=== PATIENT | female | born 1950 | race Caucasian/White ===

== ENCOUNTER 2018-11-25 16:51 | Inpatient (IN) | payer OTHER ==
--- NOTE | 2018-11-25 17:04 | EDPHY ---
H & P Time Seen by Provider: 11/25/18 16:57 Constitutional: Initial Vital Signs Temperature (C) 36.8 C 11/25/18 16:59 Heart Rate 72 11/25/18 16:59 Respiratory Rate 16 11/25/18 16:59 Blood Pressure 174/109 H 11/25/18 16:59 O2 Sat (%) 94 11/25/18 16:59 O2 Delivery Mode Room Air Allergies/Adverse Reactions: bacitracin [From Neosporin ([id number])] Allergy (Verified 11/25/18 17:04) neomycin [From Neosporin ([id number])] Allergy (Verified 11/25/18 17:04) polymyxin B [From Neosporin ([id number])] Allergy (Verified 11/25/18 17:04) Home Medications: Medication Instructions Recorded ACETAMINOPHEN 11/25/18 Amlodipine Besylate 2.5 mg 11/25/18 Biotin 1,000 mg 11/25/18 Effexor Xr 150 mg 11/25/18 Folic Acid 11/25/18 Krill Oil 11/25/18 Lamictal 250 mg 11/25/18 [place] Carbonate 300 mg 11/25/18 Lorazepam 1 mg 11/25/18 Losartan Potassium 100 mg 11/25/18 Multivitamin 11/25/18 Nac 1,000 mg 11/25/18 Synthroid 150 mcg (*) 11/25/18 Zyprexa 10 mg 11/25/18 Medical Decision Making ED Course/Re-evaluation: CHIEF COMPLAINT: Psychiatric evaluation HISTORY OF PRESENT ILLNESS: The patient is a 68 y/o female with a history of depression arriving via independent vehicle complaining of suicidal ideations. The patient sees a psychiatrist who has tried numerous medications. However, these medications are not helping so her psychiatrist would like the patient to receive ECT. The patient states that the is "at end of [her] rope". She does not have any plan for the suicide. No fever, headache, body aches, lightheadedness, chest pain, heart palpitations, shortness of breath, cough, abdominal pain, urinary or bowel complaints, numbness, paresthesias. REVIEW OF SYSTEMS: A comprehensive 10 system review of systems is otherwise negative aside from elements mentioned in the history of present illness and medical decision making. PHYSICAL EXAM: General Appearance: Tearful, alert, well hydrated, appropriate, and non-toxic appearing. Head: Atraumatic without scalp tenderness or obvious injury Eyes: Pupils equal, round, reactive to light and accommodation, EOMI, no trauma , no injection. Ears: Clear bilaterally, no perforation, normal landmarks Nose: Atraumatic, no rhinorrhea, clear. Throat: There is no erythema or exudates, no lesions, normal tonsils, mucus membranes moist. Neck: Supple, 2+ carotid upstroke, nontender, no lymphadenopathy. Respiratory: No retractions, no distress, no wheezes, and no accessory muscle use. Lungs are clear to auscultation bilaterally. Cardiovascular: Regular rate and rhythm, no murmurs, rubs, or gallops. Bilateral carotid, radial, dorsalis pedis, and posterior tibial pulses intact. Good capillary refill all extremities. Gastrointestinal: Abdomen is soft, nontender, non-distended, no masses, no rebound, no guarding, no peritoneal signs. Musculoskeletal: Normal active ROM of all extremities, atraumatic. Neurological: Alert, appropriate, and interactive. The patient has normal DTRs and non-focal cranial nerves, motor, sensory, and cerebellar exam. Skin: No rashes, good turgor, no nodules on palpation. Psych: Expresses suicidal ideations. No homicidal ideations. Past medical history: Depression Past surgical history: Denies Family history: Denies Social history: at bedside, lives in [place], retired DIFFERENTIAL DIAGNOSIS: The differential diagnosis for the patient's depression included but was not limited to functional and major depression, situational depression, medication side effect, drugs, and alcohol abuse. MEDICAL DECISION MAKING: The patient is a 68 y/o female with a history of depression arriving via independent vehicle presenting with suicidal ideations. The patient's psychiatrist sent the patient to the emergency department so she can be admitted for an ECT. Patient is in no acute distress and is hemodynamically stable. Patient has known history of psychiatric disorders and is here for an ECT. 1751: Dr. Kramer, the precision farming specialist psychiatrist, has not seen this patient. The patient will need a psych eval prior to be admitted for an ECT. 1923: Patient has been accepted to [facility] by Dr. Kramer, psychiatrist; EMTALA signed. 1926: The 12 lead EKG was interpreted by myself as sinus rhythm with a rate of 70. See hard copy and/or "tracemaster" electronic copy for interpretation. - Data Points Laboratory Results: Laboratory Results 11/25/18 17:16 11/25/18 17:16 11/25/18 11/25/18 11/25/18 17:16 17:16 17:10 WBC 6.93 10^3/uL 10^3/uL (3.80-9.50) RBC 4.70 10^6/uL 10^6/uL (4.18-5.33) Hgb 14.9 g/dL g/dL (12.6-16.3) Hct 44.3 % % (38.0-47.0) MCV 94.3 fL fL (81.5-99.8) MCH 31.7 pg pg (27.9-34.1) MCHC 33.6 g/dL g/dL (32.4-36.7) RDW 12.1 % % (11.5-15.2) Plt Count 272 10^3/uL 10^3/uL (150-400) MPV 9.6 fL fL (8.7-11.7) Neut % (Auto) 61.3 % % (39.3-74.2) Lymph % (Auto) 29.1 % % (15.0-45.0) [place] % (Auto) 7.8 % % (4.5-13.0) Eos % (Auto) 1.3 % % (0.6-7.6) Baso % (Auto) 0.1 % L % (0.3-1.7) Nucleat RBC Rel Count 0.0 % % (0.0-0.2) Absolute Neuts (auto) 4.24 10^3/uL 10^3/uL (1.70-6.50) Absolute Lymphs (auto) 2.02 10^3/uL 10^3/uL (1.00-3.00) Absolute Monos (auto) 0.54 10^3/uL 10^3/uL (0.30-0.80) Absolute Eos (auto) 0.09 10^3/uL 10^3/uL (0.03-0.40) Absolute Basos (auto) 0.01 10^3/uL L 10^3/uL (0.02-0.10) Absolute Nucleated RBC 0.00 10^3/uL 10^3/uL (0-0.01) Immature Gran % 0.4 % % (0.0-1.1) Immature Gran # 0.03 10^3/uL 10^3/uL (0.00-0.10) Sodium 142 mEq/L mEq/L (135-145) Potassium 4.1 mEq/L mEq/L (3.5-5.2) Chloride 109 mEq/L mEq/L (97-110) Carbon Dioxide 22 mEq/l mEq/l (22-31) Anion Gap 11 mEq/L mEq/L (6-14) BUN 15 mg/dL mg/dL (7-23) Creatinine 0.7 mg/dL mg/dL (0.6-1.0) Estimated GFR > 60 Glucose 104 mg/dL H mg/dL (70-100) Calcium 10.5 mg/dL H mg/dL (8.5-10.4) Salicylates < 1.0 mg/dL L mg/dL (2.0-20.0) Urine Opiates Screen NEGATIVE (NEGATIVE) Acetaminophen < 10 mcg/mL L mcg/mL (10-30) Urine Barbiturates NEGATIVE (NEGATIVE) Ur Phencyclidine Scrn NEGATIVE (NEGATIVE) Ur Amphetamine Screen NEGATIVE (NEGATIVE) U Benzodiazepines Scrn NON-NEGATIVE H (NEGATIVE) Urine Cocaine Screen NEGATIVE (NEGATIVE) U Marijuana (THC) Screen NEGATIVE (NEGATIVE) Ethyl Alcohol < 10 mg/dL mg/dL (0-10) Departure - Departure Disposition: [facility] IP Clinical Impression: Severe major depression Condition: Fair Referrals: NONE *PRIMARY CARE P,. [Primary Care Provider] - As per Instructions Report Scribed for: Bradley Roman Report Scribed by: Mikaela Barrera Date of Report: 11/25/18 Time of Report: 17:05
[2018-11-25 17:31] LABS: PLATELET COUNT 272 10^3/uL (150-400)
--- NOTE | 2018-11-25 19:54 | CPEKG ---
Test Reason : OPEN Blood Pressure : / mmHG Vent. Rate : 070 BPM Atrial Rate : 070 BPM P-R Int : 170 ms QRS Dur : 083 ms QT Int : 437 ms P-R-T Axes : 041 -27 039 degrees QTc Int : 472 ms Sinus rhythm Borderline left axis deviation Anteroseptal infarct, age indeterminate Confirmed by Bradley Romna ([id number]) on 11/25/2018 7:54:18 PM Referred By: Bradley Roman Confirmed By:Bradley Roman
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
--- NOTE | 2018-11-25 20:19 | ASMTTCLDSP ---
TLC Discharge Disposition Disposition: Answers: Admit Discharge Concerns/Recommendations: Notes: Per directive and order from [facility] on-call psychiatrist, Joe Kramer MD, Dr. Kramer agreed to accept pt for voluntary admission to . Was patient given the Answers: Yes Inpatient [facility] Prohibited Belongings List while in the ED? For inpatient Joe Kramer MD admission, the following psychiatrist agreed to accept patient for admission to [facility] ([facility]): Date Signed: 11/25/2018 08:19 PM Electronically Signed By:Candy Alvarado
[2018-11-25] MEDS ORDERED: MAGNESIUM HYDROXIDE 30 ML UDCUP PO PRN (21:40)
[2018-11-25] MEDS ORDERED: MAG HYDROX/AL HYDROX/SIMETH 30 ML UDCUP PO PRN (21:40)
[2018-11-25] MEDS: LORazepam 0.5 MG TAB PO PRN (21:59)
[2018-11-26] MEDS: ACETAMINOPHEN 325 MG TAB PO PRN ×2 (07:02→20:31)
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
[2018-11-26] MEDS: LORazepam 0.5 MG TAB PO PRN (07:25)
[2018-11-26] MEDS: LEVOTHYROXINE 150 MCG TAB PO SCH (08:05)
[2018-11-26] MEDS: amLODIPine BESYLATE 5 MG TAB PO SCH (08:12)
[2018-11-26] MEDS: VENLAFAXINE XR 150 MG CAP PO SCH (08:12)
[2018-11-26] MEDS: MULTIVITAMINS 1 EACH TAB PO SCH (08:12)
[2018-11-26] MEDS: LOSARTAN POTASSIUM 50 MG TAB PO SCH (08:12)
[2018-11-26] MEDS ORDERED: ONDANSETRON DISINTEGRATING 4 MG TAB PO PRN (13:56)
[2018-11-26] MEDS ORDERED: CITRIC ACID/SODIUM CITRATE 30 ML UDCUP PO PRN (13:56)
[2018-11-26] MEDS ORDERED: NS 1,000 ML IV PRN (13:56)
[2018-11-26] MEDS: QUEtiapine FUMARATE 25 MG TAB PO PRN ×2 (14:33→20:33)
--- NOTE | 2018-11-26 14:40 | SOAPPROG ---
SOAP Progress Note Assessment/Plan: Assessment: Q-waves in V1 and V2: * May be artifact of lead placement. Ordered repeat EKG. * She has no other signs or symptoms of coronary artery disease,, and no signs or symptoms of unstable coronary artery disease, and has sufficient cardiac reserve for the relatively low risk ECT procedure. * Dr. Anna advised against echocardiogram prior to the procedure, though if the repeat EKG continues to show Q-waves, a non urgent echocardiogram would be indicated in the future. * There is no indication for lm procedural beta rd. 11/26/18 14:37 Subjective: EKG abnormalities and cardiac risk with ECT discussed with senior quality assurance specialist Dr. Anna. Objective: Vital Signs Temp Pulse Resp BP Pulse Ox 36.7 C 69 14 118/58 L 98 11/26/18 06:00 11/26/18 06:00 11/26/18 06:00 11/26/18 06:00 11/26/18 06:00 ICD10 Worksheet Patient Problems: Problems Problem Status Onset Severe major depression Acute
--- NOTE | 2018-11-26 14:40 | PDMN ---
Medical Necessity Medical necessity: Pt meets inpt criteria per MD order and [facility] [id number], Major Depressive Disorder, Adult: Inpatient Care, 3 days. 68 y/o who reports having suicidal thoughts recently and w/hx of depression admitted w/major depressive disorder, recurrent, w/psychotic features.
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
[2018-11-26] MEDS: OLANZapine 10 MG TAB PO SCH (18:01)
[2018-11-26] MEDS: lamoTRIgine 25 MG TAB PO SCH (18:12)
[2018-11-26] MEDS ORDERED: lamoTRIgine 100 MG TAB PO SCH (21:00)
[2018-11-27] MEDS: QUEtiapine FUMARATE 25 MG TAB PO PRN ×2 (04:59→20:39)
[2018-11-27] MEDS: ACETAMINOPHEN 325 MG TAB PO PRN ×2 (07:13→13:32)
[2018-11-27] MEDS ORDERED: CITRIC ACID/SODIUM CITRATE 30 ML UDCUP ONE (11:22)
[2018-11-27] MEDS ORDERED: ONDANSETRON DISINTEGRATING 4 MG TAB ONE (11:22)
[2018-11-27] MEDS: amLODIPine BESYLATE 5 MG TAB PO SCH (11:23)
[2018-11-27] MEDS: LEVOTHYROXINE 150 MCG TAB PO SCH (11:23)
[2018-11-27] MEDS: LOSARTAN POTASSIUM 50 MG TAB PO SCH (11:23)
[2018-11-27] MEDS ORDERED: METHOHEXITAL SODIUM 100 MG/10 ML SYR IVP ONE (12:01)
[2018-11-27] MEDS ORDERED: ONDANSETRON 4 MG/2 ML VIAL ONE (12:02)
[2018-11-27] MEDS ORDERED: fentaNYL 100 MCG/2 ML INJ ONE (12:02)
[2018-11-27] MEDS ORDERED: LORazepam 2 MG/ML INJ ONE (12:16)
[2018-11-27] MEDS ORDERED: IBUPROFEN 600 MG TAB PO PRN (12:20)
[2018-11-27] MEDS ORDERED: ACETAMINOPHEN 500 MG TAB PO PRN (12:20)
[2018-11-27] MEDS ORDERED: NALOXONE HCL 0.4 MG/ML INJ IVP PRN (12:20)
[2018-11-27] MEDS ORDERED: PROMETHAZINE HCL 25 MG TAB PO PRN (12:20)
[2018-11-27] MEDS ORDERED: HYDROCODONE/APAP 5/325 TAB PO PRN (12:20)
--- NOTE | 2018-11-27 12:20 | PDECTPN ---
ECT Progress Note Patient Problems: Problems Problem Status Onset Code Severe major depression Acute F32.2 Date: 11/27/18 Treatment#: 1 ECT provider: Uri Mahoney Anesthesia: Esther Pineda Stimulus dose (%): 40 Pulse width: 0.5 ECT EMG (sec): 35 ECT EEG (sec): 90 ECT treatment type: bilateral QIDS-SR Total Score: 24 QIDS-SR Question #12 Score: 1 MMSE Total Score (Max = 21): 21 Next ECT date: 11/29/18 Next ECT time: 08:30 O/P psychiatrist follow up with : [place] O/P psychiatrist follow up: phone, voice message Home medications: Medication Instructions Recorded Acetaminophen [Tylenol ES 500 mg 1,000 mg PO BID 11/25/18 (*)] Herbals/Supplements -Info Only 1 ea PO DAILY 11/25/18 LORazepam [Ativan (*)] 1 mg PO BID 11/25/18 Levothyroxine [Synthroid 150 mcg 150 mcg PO DAILY06 11/25/18 (*)] [place] Carbonate [[place] 300 mg PO HS 11/25/18 Carbonate Cap 300 mg (*)] Losartan Potassium 100 mg PO DAILY 11/25/18 Multivitamins [Multivitamin (*)] 1 each PO DAILY 11/25/18 OLANZapine [Zyprexa] 10 mg PO DAILY@18 11/25/18 Venlafaxine HCl [Venlafaxine HCl 150 mg PO DAILY 11/25/18 ER] amLODIPine BESYLATE [Norvasc 2.5 2.5 mg PO DAILY 11/25/18 mg (*)] lamoTRIgine [Lamictal] 300 mg PO HS 11/25/18 Current treatment plan: acute phase Treatment plan frequency: 3 times per week ECT narrative: 11/27/18 Reviewed again the R/B/A's in terms of the Bilateral vs RUL ECT and pt emphatically wishes to start with Bilateral. She even virutally pleaded to get ketamine with this first tx. I demurred on that request given the rationale discussed yesterday (likelihood of "false positive" in terms of results too quickly, but in non-sustained manner with ketamine PLus ECT. Pt describes modest benefit from Seroquel prns. New EKG does not show Qs reflecting improper lead placement with first.
--- NOTE | 2018-11-27 12:26 | PDANEPAE ---
ECT Pre Anesthetic Evaluation Allergies/Adverse Reactions: bacitracin [From Neosporin ([id number])] Allergy (Verified 11/25/18 17:04) neomycin [From Neosporin ([id number])] Allergy (Verified 11/25/18 17:04) polymyxin B [From Neosporin ([id number])] Allergy (Verified 11/25/18 17:04) Patient ID confirmed: Yes H&P reviewed: Yes Pre-anesthetic history reviewed: Yes Heart: regular rate and rhythym, no murmur, rub, or gallop Lungs: no respiratory distress, no rales or rhonchi, clear to auscultation Mallampati Score: Class 3 ASA Status: III Home Medications: Medication Instructions Recorded Acetaminophen [Tylenol ES 500 mg 1,000 mg PO BID 11/25/18 (*)] Herbals/Supplements -Info Only 1 ea PO DAILY 11/25/18 LORazepam [Ativan (*)] 1 mg PO BID 11/25/18 Levothyroxine [Synthroid 150 mcg 150 mcg PO DAILY06 11/25/18 (*)] Dortches Carbonate [Dortches 300 mg PO HS 11/25/18 Carbonate Cap 300 mg (*)] Losartan Potassium 100 mg PO DAILY 11/25/18 Multivitamins [Multivitamin (*)] 1 each PO DAILY 11/25/18 OLANZapine [Zyprexa] 10 mg PO DAILY@18 11/25/18 Venlafaxine HCl [Venlafaxine HCl 150 mg PO DAILY 11/25/18 ER] amLODIPine BESYLATE [Norvasc 2.5 2.5 mg PO DAILY 11/25/18 mg (*)] lamoTRIgine [Lamictal] 300 mg PO HS 11/25/18 Medication review: completed Patient interviewed: Yes Patient examined: Yes Anesthetic plan discussed with patient: Yes Anesthetic risks discussed with patient: Yes ECT Pre-Anesthetic History - Height & Weight Height: 165.1 cm Weight: 74.843 kg BMI: 27.46 - Medications In the Past 6 Months the Patient Has Taken: Arthritis Medication, Thyroid Medication, Blood Pressure Medication - Tobacco/Alcohol/Drug Use Smoking Status: Never smoked - Prior Surgeries/Hospitalizations Prior Surgeries: R shoulder replacement in 2018 Prior Medical Hospitalizations: For shoulder replacement in 2018 - Pulmonary History Hx Oxygen in Use at Home: No - Cardiovascular History Hx Hypertension: Yes Currently Uses Hypertension Medication: Yes - Endocrine History Hx Diabetes: No Hx Thyroid Problems: Yes - Musculoskeletal Hisory Hx Chronic Pain: Yes Chronic Pain Location: Neck Hx Arthritis: Yes - Opthalmic History Visual Assistive Devices: Glasses
--- NOTE | 2018-11-27 12:26 | PDHPUP ---
History & Physical Update H&P update statement: This history and physical update is based on an assessment of the patient which was completed after admission or registration (within 24 hours), but prior to the surgery/procedure. H&P update: H&P reviewed & patient examined, no change in patient's condition since H&P completed
--- NOTE | 2018-11-27 12:26 | POSTANESTH ---
Post Anesthetic Evaluation Cardiovascular Status: Normal, Stable, Similar to Pre-Op Cond Respiratory Status: Normal, Stable, Similar to Pre-op Cond. Level of Consciousness/Mental Status: Unconscious Pain Control: Adequate, Prn Tx Ordered Nausea/Vomiting Control: Adequate, Prn Tx Ordered Complications Possibly Related to Anesthesia: None Noted
--- NOTE | 2018-11-27 12:59 | ASMTCMCOM ---
CM Note CM Note Notes: CC spoke to client briefly today. Client presents as tearful at times, anxious, sad and depressed. Client describes her mood as "not good," while stating she only received 6 hours of sleep. Additionally, client rates her current feelings of anxiety 06/03, depression /10 while denying any feelings of S/I-H/I or AVH. Client suggest that she was anxious for her ECT treatment today (scheduled at 11am). This scenario writer was able to calm client down while actively listening to her concerns. Date Signed: 11/27/2018 12:58 PM Electronically Signed By:Mark Vee
--- NOTE | 2018-11-27 13:37 | CPEKG ---
Test Reason : Q waves on EKG 11/25/2018. Repeat to rule out lead placement Blood Pressure : / mmHG Vent. Rate : 065 BPM Atrial Rate : 065 BPM P-R Int : 184 ms QRS Dur : 084 ms QT Int : 432 ms P-R-T Axes : 047 -32 043 degrees QTc Int : 450 ms SINUS RHYTHM LEFT AXIS DEVIATION PROBABLE LEFT VENTRICULAR HYPERTROPHY Confirmed by Uri Sanchez ([id number]) on 11/27/2018 1:37:31 PM Referred By: Robert Kramer Confirmed By:Uri Sanchez
[2018-11-27] MEDS: MULTIVITAMINS 1 EACH TAB PO SCH (13:42)
[2018-11-27] MEDS: CHOLECALCIFEROL VIT D3 1,000 UNITS TAB PO SCH (13:42)
[2018-11-27] MEDS: VENLAFAXINE XR 150 MG CAP PO SCH (13:43)
[2018-11-27] MEDS ORDERED: amLODIPine BESYLATE 5 MG TAB PO ONE (15:15)
[2018-11-27] MEDS: lamoTRIgine 25 MG TAB PO SCH (19:26)
[2018-11-27] MEDS: OLANZapine 10 MG TAB PO SCH (19:26)
[2018-11-28] MEDS: QUEtiapine FUMARATE 25 MG TAB PO PRN (05:15)
[2018-11-28] MEDS: ACETAMINOPHEN 325 MG TAB PO PRN ×2 (06:47→20:32)
[2018-11-28] MEDS: CHOLECALCIFEROL VIT D3 1,000 UNITS TAB PO SCH (08:19)
[2018-11-28] MEDS: LORazepam 0.5 MG TAB PO PRN ×2 (08:19→14:12)
[2018-11-28] MEDS: VENLAFAXINE XR 150 MG CAP PO SCH (08:20)
[2018-11-28] MEDS: MULTIVITAMINS 1 EACH TAB PO SCH (08:20)
[2018-11-28] MEDS: amLODIPine BESYLATE 5 MG TAB PO SCH (08:20)
[2018-11-28] MEDS: LOSARTAN POTASSIUM 50 MG TAB PO SCH (08:21)
--- NOTE | 2018-11-28 09:02 | SOAPPROG ---
SOAP Progress Note Assessment/Plan: Assessment: MDD, severe, recurrent with possible psychotic fxs Plan: Pt had no HUERTA or N/V after EC T #1. She felt "almost normal" for a brief period, lasting into this early AM, but then had a flood of anxiety over come her. She had had no ativan prescribed, and had been taking 1 mg bid, so we ordered 0.5 q6 prn and increased seroquel prn to 50 mg q 4. Pt required a lot of psychoed and reassurance and coping mechanisms were discussed about how to bide her time least painfully whilst awaiting for ECTs more sustained effects. Affect constricted, tense, impov speech, monotone, ruminative, overwhelming free floating anxiety to point of hopelessness and SI. A and O x3 Free T3 and T4 wnl, done given low TSH. Will recheck Ca level, and as LFTs were not done, simply order a CMP 11/28/18 08:59 11/28/18 09:02 11/28/18 09:03 Objective: Vital Signs Temp Pulse Resp BP Pulse Ox 36.9 C 69 18 139/65 H 95 11/28/18 06:00 11/28/18 06:00 11/28/18 06:00 11/28/18 06:00 11/28/18 06:00 11/27/18 11/28/18 11/29/18 05:59 05:59 05:59 Intake Total 740 Balance 740 Laboratory Tests 11/25/18 11/26/18 11/27/18 17:16 17:07 20:19 Glucose 104 H Calcium 10.5 H C-React Prot High Sens 1.9 Vitamin B12 459 25-OH Vitamin D Total 24.5 L Folate > 20.00 TSH 0.154 L Free T4 1.63 Free T3 2.88 ICD10 Worksheet Patient Problems: Problems Problem Status Onset Severe major depression Acute
[2018-11-28] MEDS: LEVOTHYROXINE 150 MCG TAB PO SCH (09:59)
[2018-11-28] MEDS: QUEtiapine FUMARATE 50 MG TAB PO PRN ×2 (12:25→20:26)
--- NOTE | 2018-11-28 13:27 | ASMTCMCOM ---
CM Note CM Note Notes: CC spoke to client briefly today. Client presents as flat at times and tearful at times. Client describes her mood as "all right," while stating she only received 7 hours of sleep. Client to remain IP- over weekend to continu ECT courses, etc. With poss. discharge early next week. Weekend CC can call client's OP prescribers for follow up apt later this month, preferably on a Sunday or as client will be doing OP ECT. Date Signed: 11/28/2018 01:26 PM Electronically Signed By:Mark Vee
[2018-11-28] MEDS: OLANZapine 10 MG TAB PO SCH (20:26)
[2018-11-29] MEDS ORDERED: NS 1,000 ML IV PRN (04:00)
[2018-11-29] MEDS ORDERED: CITRIC ACID/SODIUM CITRATE 30 ML UDCUP PO PRN (04:00)
[2018-11-29] MEDS ORDERED: ONDANSETRON DISINTEGRATING 4 MG TAB PO PRN (04:00)
[2018-11-29] MEDS: ACETAMINOPHEN 325 MG TAB PO PRN ×2 (05:56→12:20)
[2018-11-29] MEDS: QUEtiapine FUMARATE 50 MG TAB PO PRN ×2 (05:56→13:11)
[2018-11-29] MEDS: LEVOTHYROXINE 150 MCG TAB PO SCH (08:09)
[2018-11-29] MEDS: amLODIPine BESYLATE 5 MG TAB PO SCH (08:09)
[2018-11-29] MEDS: LOSARTAN POTASSIUM 50 MG TAB PO SCH (08:10)
[2018-11-29] MEDS ORDERED: ONDANSETRON DISINTEGRATING 4 MG TAB ONE (10:33)
[2018-11-29] MEDS ORDERED: CITRIC ACID/SODIUM CITRATE 30 ML UDCUP ONE (10:33)
[2018-11-29] MEDS ORDERED: KETOROLAC 30 MG/1 ML SDV ONE (11:05)
[2018-11-29] MEDS ORDERED: LORazepam 2 MG/ML INJ ONE (11:05)
--- NOTE | 2018-11-29 11:06 | PDANEPAE ---
ECT Pre Anesthetic Evaluation Allergies/Adverse Reactions: bacitracin [From Neosporin ([id number])] Allergy (Verified 11/25/18 17:04) neomycin [From Neosporin ([id number])] Allergy (Verified 11/25/18 17:04) polymyxin B [From Neosporin ([id number])] Allergy (Verified 11/25/18 17:04) Patient ID confirmed: Yes H&P reviewed: Yes Pre-anesthetic history reviewed: Yes Heart: regular rate and rhythym, no murmur, rub, or gallop Lungs: no respiratory distress, no rales or rhonchi Mallampati Score: Class 3 ASA Status: III Home Medications: Medication Instructions Recorded Acetaminophen [Tylenol ES 500 mg 1,000 mg PO BID 11/25/18 (*)] Herbals/Supplements -Info Only 1 ea PO DAILY 11/25/18 LORazepam [Ativan (*)] 1 mg PO BID 11/25/18 Levothyroxine [Synthroid 150 mcg 150 mcg PO DAILY06 11/25/18 (*)] [place] Carbonate [[place]andridge 300 mg PO HS 11/25/18 Carbonate Cap 300 mg (*)] Losartan Potassium 100 mg PO DAILY 11/25/18 Multivitamins [Multivitamin (*)] 1 each PO DAILY 11/25/18 OLANZapine [Zyprexa] 10 mg PO DAILY@18 11/25/18 Venlafaxine HCl [Venlafaxine HCl 150 mg PO DAILY 11/25/18 ER] amLODIPine BESYLATE [Norvasc 2.5 2.5 mg PO DAILY 11/25/18 mg (*)] lamoTRIgine [Lamictal] 300 mg PO HS 11/25/18 Medication review: completed Patient interviewed: Yes Patient examined: Yes Anesthetic plan discussed with patient: Yes Anesthetic risks discussed with patient: Yes ECT Pre-Anesthetic History - Height & Weight Height: 165.1 cm Weight: 74.843 kg BMI: 27.46 - Medications In the Past 6 Months the Patient Has Taken: Arthritis Medication, Thyroid Medication, Blood Pressure Medication - Tobacco/Alcohol/Drug Use Smoking Status: Never smoked - Prior Surgeries/Hospitalizations Prior Surgeries: R shoulder replacement in 2018 Prior Medical Hospitalizations: For shoulder replacement in 2018 - Pulmonary History Hx Oxygen in Use at Home: No - Cardiovascular History Hx Hypertension: Yes Currently Uses Hypertension Medication: Yes - Endocrine History Hx Diabetes: No Hx Thyroid Problems: Yes - Musculoskeletal Hisory Hx Chronic Pain: Yes Chronic Pain Location: Neck Hx Arthritis: Yes - Opthalmic History Visual Assistive Devices: Glasses
--- NOTE | 2018-11-29 11:17 | PDECTPN ---
ECT Progress Note Patient Problems: Problems Problem Status Onset Code Severe major depression Acute F32.2 Date: 11/29/18 Treatment#: 2 ECT provider: Uri Mahoney Anesthesia: Esther Pineda Stimulus dose (%): 45 Pulse width: 0.5 ECT EMG (sec): 37 ECT EEG (sec): 63 ECT treatment type: bilateral QIDS-SR Total Score: 23 QIDS-SR Question #12 Score: 1 MMSE Total Score (Max = 21): 21 Next ECT date: 12/02/18 Next ECT time: 10:00 O/P psychiatrist follow up with : [place] O/P psychiatrist follow up: phone, voice message Home medications: Medication Instructions Recorded Acetaminophen [Tylenol ES 500 mg 1,000 mg PO BID 11/25/18 (*)] Herbals/Supplements -Info Only 1 ea PO DAILY 11/25/18 LORazepam [Ativan (*)] 1 mg PO BID 11/25/18 Levothyroxine [Synthroid 150 mcg 150 mcg PO DAILY06 11/25/18 (*)] [place] Carbonate [[place] 300 mg PO HS 11/25/18 Carbonate Cap 300 mg (*)] Losartan Potassium 100 mg PO DAILY 11/25/18 Multivitamins [Multivitamin (*)] 1 each PO DAILY 11/25/18 OLANZapine [Zyprexa] 10 mg PO DAILY@18 11/25/18 Venlafaxine HCl [Venlafaxine HCl 150 mg PO DAILY 11/25/18 ER] amLODIPine BESYLATE [Norvasc 2.5 2.5 mg PO DAILY 11/25/18 mg (*)] lamoTRIgine [Lamictal] 300 mg PO HS 11/25/18 Medication review: completed Current treatment plan: acute phase Treatment plan frequency: 3 times per week ECT narrative: 11/27/18 Reviewed again the R/B/A's in terms of the Bilateral vs RUL ECT and pt emphatically wishes to start with Bilateral. She even virutally pleaded to get ketamine with this first tx. I demurred on that request given the rationale discussed yesterday (likelihood of "false positive" in terms of results too quickly, but in non-sustained manner with ketamine PLus ECT. Pt describes modest benefit from Seroquel prns. New EKG does not show Qs reflecting improper lead placement with first. 11/29 Pt has had no real change in QIDS, and has reverted to feeling very dysphoric, anxious, hopeless and tearful with affective blunting, PMR, impov speech, and SI /hopelessness. But, wishes to discharge under Hs strict 16/04 care as she feels she would suffer less out of the hospital
[2018-11-29] MEDS ORDERED: IBUPROFEN 600 MG TAB PO PRN (11:30)
[2018-11-29] MEDS ORDERED: NALOXONE HCL 0.4 MG/ML INJ IVP PRN (11:30)
[2018-11-29] MEDS ORDERED: HYDROCODONE/APAP 5/325 TAB PO PRN (11:30)
[2018-11-29] MEDS ORDERED: PROMETHAZINE HCL 25 MG TAB PO PRN (11:30)
[2018-11-29] MEDS: CHOLECALCIFEROL VIT D3 1,000 UNITS TAB PO SCH (12:15)
[2018-11-29] MEDS: VENLAFAXINE XR 150 MG CAP PO SCH (12:15)
[2018-11-29] MEDS: MULTIVITAMINS 1 EACH TAB PO SCH (12:15)
[2018-11-29] MEDS: LORazepam 0.5 MG TAB PO PRN (13:11)
[2018-11-29 13:24] VITALS: BP 157/97
--- NOTE | 2018-11-29 14:08 | ASMTBHDC ---
Notes Note: Notes: Pt. reports feeling "not well at all" adding she is having "lot of anxiety". Pt. reports her anxiety "gotten worse in here". Pt. reports having ECT today. Pt. stated she is getting enough to eat and is attending groups. Pt. stated her medication that "takes the edge off" is helping her. Pt. stated "thought I had gotten some relief" from ECT. Pt. stated she would like to discharge today, adding her is a "very capable david". Pt. stated she is able to get to her follow up appointments and is able to fill and take her medications as prescribed. Pt. reports some SI, rating herself a 3/10, with no plan. Pt. stated she is having these thoughts as a relief from her anxiety, not wanting to . Pt. presents as alert, nervous, tearful at times, good eye contact, polite, friendly, and cooperative. Staff report pt. sleeping 8.5 hours and being medication compliant. Pt's follow up appointments: Dr Vineet Thrasher [facility] [place] [address] Next Appointment - Sunday (12/23/18) @ 12:00pm. Also, patient is on the cancellation list to see Dr. Thrasher. ECT - Dr. Mahoney [facility] Next ECT Treatment - Sunday December 02, 2018 at 10:00am Date Signed: 11/29/2018 02:08 PM Electronically Signed By:Angelina Larry
--- NOTE | 2018-11-29 19:25 | GDS ---
[f rep st] DISCHARGE SUMMARY IDENTIFYING DATA: The patient is a 68-year-old white female who lives with her in [place], [place]. She sees Vineet Thrasher MD, who is her outpatient psychiatrist. She has had [facility] prior psychiatric hospitalizations and last worked with this bond writer 10 years ago at [facility], where she received ECT treatment. She was admitted on 11/25/2018 and discharged on 11/29/2018. REASON FOR ADMISSION: This patient is experiencing exacerbation of her longstanding recurrent major depressive disorder. She has developed increasing hopelessness and with it, suicidal ideation with p lavon to overdose on medication. She has multiple vegetative symptoms, consistent with depression, as seen in the History of Present Illness. She is proving treatment refractory to a thoughtful combinat ion of psychotropic medications, including Effexor, Zyprexa, and Lamictal. Routine physical exam performed by Shaquille Garces which revealed: 1. Question of coronary artery disease with abnormal EKG. We will discuss with Cardiology and advis e further. She has no family history, no personal history consistent with coronary artery disease or myocardial infarction. She does not present with heart failure. She likely has adequate cardiopulm onary capacity to undergo ECT. May consider echocardiogram or Cardiology review of the EKG prior to proceeding. 2. Hypothyroidism with recent weight gain. I have ordered a TSH to be added onto the labs that were drawn yesterday. 3. Central sleep apnea. she should have a central breathing disorder, but apparently is well controlled with the bilevel positive airway pressure mask which she brought with her and has bee n using for the past 10 years. Continue BiPAP. 4. Hypertension with adequate control. A followup note by Dr. Garces was done after reviewing the r epeat EKG which was read as essentially normal, revealing the likelihood that the original EKG had ar tifact from improper lead placement. DATA REVIEWED: Routine lab work: Patient's CBC and Chem profile were effectively normal with the ex ception of a slightly elevated calcium at 10.5. Highly sensitive C-reactive protein was 1.9. Vitami n B12 was 459, 25-hydroxy vitamin D was 24.5. Folate was greater than 20. TSH was slightly low at 0 .154, but with a normal free T4 and T3 at 1.63 and 2.88 respectively. Urine toxicology was positive only for benzodiazepine, which is expected as she takes Ativan p.r.n. Urine toxicology was negative. The MTHFR [id number] mutation is still pending. HOSPITAL COURSE: The patient provided her informed consent to restart bilateral acute ECT as she had done 10 years prior. She underwent 2 treatments altogether with no significant side effects, only m ild headache. She had some transient and hope inspiring change with each treatment, revealing a ligh tening of mood and diminishment of hopelessness and suicidality. Her lamotrigine dose was decreased, as was Ativan. Seroquel 50 mg q.6 hours p.r.n. was added to be used for anxiety, with the hope of r educing her dependence on benzodiazepine. Otherwise, Effexor and Zyprexa and her Synthroid dose were left unchanged. Antihypertensive medications were left unchanged as well. She wished to be dischar [facility] after 2 treatments, feeling like she would be less uncomfortable at home and her provided reassurance that he would provide strict 24/7 supervision. DISCHARGE MEDICATION: Amlodipine 2.5 mg p.o. daily, vitamin D3 at 4000 units p.o. daily, lamotrigine is 50 mg p.o. at bedtime (until she has completed her acute ECT), Synthroid 150 mcg p.o. daily, brenton zepam 0.5 mg q.6 hours p.r.n. anxiety, losartan 100 mg p.o. daily, olanzapine 10 mg p.o. q.6 p.m., Se roquel 50 mg p.o. q.6 hours p.r.n. anxiety, Effexor XR 150 mg p.o. daily. DISPOSITION: The patient is to return home with her who will provide strict 24/7 supervision , not allowing driving, and he will also manage her medications and dispense them. All lethal means of self-harm will be removed from her access. She is to return Sunday for ECT. DISCHARGE DIAGNOSES: 1. 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 2. Hypothyroidism. 3. Hypertension. 4. Central sleep apnea. 5. History of shoulder replacement surgery. /[id number]/MODL
== END 2018-11-29 14:10 | disposition home or self-care (01) | DRG 885 ==
LOC: BBEH 19:52
PROVIDERS: ADMIT Psychiatry & Neurology Psychiatry; ATTEND Psychiatry & Neurology Psychiatry
PROC: GZB2ZZZ Electroconvulsive Therapy, Bilateral-Single Seizure (ICD-10-PCS; principal; 2018-11-27)
DX: F33.3 Major depressive disorder, recurrent, severe with psychotic symptoms (principal); E03.9 Hypothyroidism, unspecified; G47.31 Primary central sleep apnea; I10 Essential (primary) hypertension; Z96.612 Presence of left artificial shoulder joint
CPT/HCPCS: 80305; 82607-90; 84481-90; 86141-90; G0480; J1885; J2060; J2405; J3010